=== PATIENT | female | born 1965 | race Caucasian/White ===

== ENCOUNTER 2020-07-10 09:56 | Day surgery (SDC) | payer OTHER ==
[2020-07-08 11:49] VITALS: BMI 37.8
[2020-07-10 11:43] VITALS: BP 115/71; PULSE 77; TEMP 98
== END 2020-07-10 11:45 | disposition home or self-care (01) ==
LOC: FASU-ENDO 09:56
PROVIDERS: ATTEND Internal Medicine Gastroenterology
PROC: 0DBP8ZX Excision of Rectum, Via Natural or Artificial Opening Endoscopic, Diagnostic (ICD-10-PCS; principal; 2020-07-10 10:58)
DX: Z12.11 Encounter for screening for malignant neoplasm of colon (principal); K64.0 First degree hemorrhoids; D12.8 Benign neoplasm of rectum
CPT/HCPCS: 88305-TC